=== PATIENT | male | born 2000 | race Caucasian/White ===

== ENCOUNTER 2021-01-26 20:09 | Emergency (ER) | payer BC ==
[~2021-01-26] VITALS: Ht 162.6 cm; Wt 61.4 kg
[2021-01-26 21:46] VITALS: BP 132/68; PULSE 89; TEMP 98.1
== END 2021-01-26 21:46 | disposition home or self-care (01) ==
LOC: COL.ER 20:09
DX: Z20.3 Contact with and (suspected) exposure to rabies (principal); Z23 Encounter for immunization

== ENCOUNTER 2021-02-02 14:55 | Outpatient (RCR) | payer BC ==
[2021-02-09 16:39] VITALS: BP 134/77; PULSE 83; TEMP 97.6
== END 2021-04-29 | disposition home or self-care (01) ==
LOC: EUO
DX: Z23 Encounter for immunization (principal); Z20.3 Contact with and (suspected) exposure to rabies